=== PATIENT | male | born 1945 | race Caucasian/White ===

== ENCOUNTER 2023-03-30 10:02 | Inpatient (IN) | payer OTHER ==
[2023-03-30 10:25] VITALS: BMI 22.8
[2023-03-30 11:24] LABS: BASO % 0.2 % (0-2.0); EOS % 0.4 % (0-4.5); HEMATOCRIT 34.1 % (35.4-49); HEMOGLOBIN 11.4 GM/dL (11.7-16.9); LYMPH % 6.2 % (8-40); MCH 30.4 pg (25.7-33.7); MCHC 33.5 g/dl (32.0-35.9); MEAN CELL VOLUME 90.7 fl (80-96); MEAN PLT VOLUME 7.2 fl (7.5-11.1); NEUT % 88.2 % (42.8-82.8); PLATELET COUNT 212 10^3/uL (134-434); RBC 3.76 M/mm3 (4.00-5.60); RDW 14.3 % (11.9-15.9); WHITE BLOOD COUNT 10.1 K/mm3 (4.0-10.0)
[2023-03-30 11:48] LABS: CHLORIDE 108 mmol/L (98-107); POTASSIUM 3.4 mmol/L (3.5-5.1); SODIUM 142 mmol/L (136-145)
[2023-03-30 11:50] LABS: ANION GAP 8 mmol/L (4-13); BLOOD UREA NITROGEN 18.2 mg/dL (7-18); CALCIUM 9.3 mg/dL (8.5-10.1); CO2 27 mmol/L (21-32)
[2023-03-30 11:51] LABS: ALBUMIN 3.4 g/dl (3.4-5.0); GLUCOSE,RANDOM 110 mg/dL (74-106)
[2023-03-30 11:53] LABS: SGOT/AST 19 U/L (15-37); SGPT/ALT 19 U/L (13-61)
[2023-03-30 11:54] LABS: CREATININE 0.9 mg/dL (0.55-1.3)
[2023-03-30 11:55] LABS: BILIRUBIN,TOTAL 0.8 mg/dL (0.2-1); TOT PROT 6.8 g/dl (6.4-8.2)
[2023-03-30 11:56] LABS: ALK PHOS 144 U/L (45-117)
[2023-03-30 12:06] LABS: LACTIC ACID 3.6 mmol/L (0.4-2.0)
[2023-03-30 12:23] LABS: EPI CELLS >36 /uL (0-25.1); HYALINE CASTS 1 /uL (0-3.1); PH,URINE 6.5 (5.0-8.0); URINE APPEARANCE CLEAR; URINE BACTERIA 42 /uL (0-1359); URINE BILIRUBIN NEGATIVE (NEGATIVE); URINE COLOR ORANGE; URINE GLUCOSE (UA) NEGATIVE (NEGATIVE); URINE KETONE NEGATIVE (NEGATIVE); URINE LEUK ESTERASE NEGATIVE (NEGATIVE); URINE NITRITE NEGATIVE (NEGATIVE); URINE PROTEIN 1+ (NEGATIVE); URINE RBC 4611 /uL (0-23.9); URINE UROBILINOGEN 0.2 mg/dL (0.2-1.0); URINE WBC 29 /uL (0-25.8)
[2023-03-30] MEDS ORDERED: SODIUM CHLORIDE 0.9% 500 ML INFUS.BAG IV ONE (12:50)
[2023-03-30 14:38] LABS: COCAINE, UR NEGATIVE (NEGATIVE); METHADONE, UR NEGATIVE (NEGATIVE); OPIATES, URI NEGATIVE (NEGATIVE); PHENCYCLIDINE,URINE NEGATIVE (NEGATIVE); URINE AMPHETAMINES NEGATIVE (NEGATIVE); URINE BARBITURATES NEGATIVE (NEGATIVE); URINE BENZODIAZEPINES NEGATIVE (NEGATIVE)
[2023-03-30 15:30] LABS: LACTIC ACID 2.2 mmol/L (0.4-2.0)
[2023-03-31] MEDS: QUEtiapine FUMARATE 50 MG TABLET PO SCH ×3 (00:45→22:07)
[2023-03-31] MEDS: PANTOPRAZOLE 40 MG TABLET PO SCH (06:11)
[2023-03-31 09:17] LABS: BASO % 0.5 % (0-2.0); EOS % 0.3 % (0-4.5); HEMATOCRIT 32.8 % (35.4-49); HEMOGLOBIN 10.9 GM/dL (11.7-16.9); LYMPH % 13.8 % (8-40); MCH 30.1 pg (25.7-33.7); MCHC 33.2 g/dl (32.0-35.9); MEAN CELL VOLUME 90.7 fl (80-96); MEAN PLT VOLUME 7.5 fl (7.5-11.1); MONO % 13.1 % (3.8-10.2); NEUT % 72.3 % (42.8-82.8); PLATELET COUNT 186 10^3/uL (134-434); RBC 3.62 M/mm3 (4.00-5.60); RDW 14.4 % (11.9-15.9); WHITE BLOOD COUNT 8.2 K/mm3 (4.0-10.0)
[2023-03-31 09:39] LABS: POTASSIUM 3.9 mmol/L (3.5-5.1)
[2023-03-31 09:47] LABS: CALCIUM 8.7 mg/dL (8.5-10.1)
[2023-03-31 09:48] LABS: BLOOD UREA NITROGEN 11.2 mg/dL (7-18)
[2023-03-31 09:51] LABS: CREATININE 0.9 mg/dL (0.55-1.3)
[2023-03-31 09:52] LABS: BILIRUBIN,TOTAL 1.4 mg/dL (0.2-1)
[2023-03-31 09:53] LABS: TOT PROT 6.4 g/dl (6.4-8.2)
[2023-03-31] MEDS: ENOXAPARIN NA (PORCINE) 40 MG/0.4 ML DISP.SYRIN SQ SCH (10:29)
[2023-03-31 20:41] VITALS: RESP 18
[2023-04-01] MEDS: PANTOPRAZOLE 40 MG TABLET PO SCH (06:14)
[2023-04-01] MEDS: QUEtiapine FUMARATE 50 MG TABLET PO SCH (10:27)
[2023-04-01] MEDS: ENOXAPARIN NA (PORCINE) 40 MG/0.4 ML DISP.SYRIN SQ SCH (10:27)
[2023-04-01 14:28] VITALS: BP 116/69; PULSE 85; TEMP 97.8
== END 2023-04-01 20:00 | DRG 178 ==
LOC: JER 10:02 → JERBED 15:39 → J7W 23:22
PROVIDERS: ADMIT Internal Medicine; ATTEND Internal Medicine
DX: U07.1 COVID-19 (principal); F02.811 Dementia in other diseases classified elsewhere, unspecified severity, with agitation; G30.9 Alzheimer's disease, unspecified; R45.1 Restlessness and agitation; R79.89 Other specified abnormal findings of blood chemistry; R41.82 Altered mental status, unspecified; R31.9 Hematuria, unspecified; Z85.46 Personal history of malignant neoplasm of prostate
CPT/HCPCS: 0241U-QW; 36415; 70450-TC; 71045-TC-FY; 80053; 80307; 81003; 82140; 83605; 84443; 84484; 85025; 87086; 93005; 93010; 99285-25